=== PATIENT | male | born 2000 | race Caucasian/White ===

== ENCOUNTER 2024-05-21 08:49 | Outpatient (CLI) | payer OTHER, SELFPAY | END 2024-05-21 08:50 | disposition home or self-care (01) | LOC: NFLDREF 05-25 22:23 | PROVIDERS: PCP Family Medicine; Referring Provider Family Medicine; Visit Provider Family Medicine | DX: E78.5 Hyperlipidemia, unspecified (principal); Z13.1 Encounter for screening for diabetes mellitus | CPT/HCPCS: 80061; 82947 ==

== ENCOUNTER 2024-05-24 07:57 | Outpatient (CLI) | payer OTHER, SELFPAY | END 2024-05-24 07:58 | disposition home or self-care (01) | PROVIDERS: PCP Family Medicine; Visit Provider Family Medicine | DX: Z00.00 Encounter for general adult medical examination without abnormal findings (principal); R53.83 Other fatigue; R79.89 Other specified abnormal findings of blood chemistry; R10.9 Unspecified abdominal pain; R19.7 Diarrhea, unspecified; Z13.6 Encounter for screening for cardiovascular disorders | CPT/HCPCS: 80053; 80061; 83516; 84443; 86140 ==

== ENCOUNTER 2024-11-01 16:05 | Outpatient (CLI) | payer OTHER, SELFPAY | END 2024-11-01 16:06 | disposition home or self-care (01) | LOC: NFLDREF 16:08 | PROVIDERS: PCP Family Medicine; Visit Provider Family Medicine | DX: R53.83 Other fatigue (principal); R19.7 Diarrhea, unspecified; R10.9 Unspecified abdominal pain | CPT/HCPCS: 83516 ==

== ENCOUNTER 2025-09-09 13:39 | Outpatient (CLI) | payer OTHER, SELFPAY ==
--- NOTE | 2025-09-09 14:00 | CRLHL7_ITS ---
For Patients: As a result of the Century Cures Act, medical imaging exams and procedure reports are released immediately into your electronic medical record. You may view this report before your referring provider. If you have questions, please contact your health care provider. CLINICAL HISTORY: Lower abdominal pain COMPARISON: none TECHNIQUE: Real time lee scale imaging and color Doppler analysis was performed of the abdomen. FINDINGS: Liver measures 16.4 cm. Liver echotexture is increased. Echogenic structures are present within the periphery of the right hepatic lobe and measures 10 x 9 x 5 millimeters and 10 x 8 x 5 millimeters. The spleen is of normal size. The visualized pancreas appears normal. The proximal abdominal aorta and IVC appear normal. There is no evidence of ascites. The gallbladder is of normal size and there is no evidence of sludge or stones within the gallbladder lumen. The gallbladder wall measures 2 mm in thickness. The common bile duct measures 3 mm in size within the maddie hepatis. The kidneys appear symmetric. The right kidney measures 11.8 cm in length and the left kidney measures 10.7 cm. There is no evidence of a renal calculus or hydronephrosis. IMPRESSION: Hepatic steatosis with incidental intrahepatic hemangiomas measuring up to 1 cm. Remainder unremarkable. Dictated by Jovi Stover MD @ 09/09/2025 4:34:04 PM (Electronically Signed)
== END 2025-09-09 13:40 | disposition home or self-care (01) ==
PROVIDERS: PCP Family Medicine; Visit Provider Student in an Organized Health Care Education/Training Program
DX: R10.30 Lower abdominal pain, unspecified (principal); K76.0 Fatty (change of) liver, not elsewhere classified
CPT/HCPCS: 76700